=== PATIENT | female | born 1935 | race Caucasian/White ===

== ENCOUNTER 2017-11-18 16:07 | Emergency (ER) | payer MEDICARE, OTHER ==
[~2017-11-18] VITALS: Ht 152.4 cm; Wt 52.0 kg
[~2017-11-18 16:07] MED LIST: ACIP20TA19 PO; ACTO35TA PO; CALC600T34; COUM3TAB PO; LIVA2TAB PO; MAGN500T4 PO; OMEGCAP21 PO; TAB-TAB; TRAM50 PO
[2017-11-18 16:38] VITALS: BP 186/67; PULSE 70; RESP 14; TEMP 98.5; O2SAT 98
--- NOTE | 2017-11-18 18:01 | PD ---
HPI Chief Complaint: Skin Problem Time Seen by Provider: 17:47 Travel History International Travel<30 days: No Contact w/Intl Traveler<30days: No Traveled to known affect area: No History of Present Illness HPI 81-year-old female with history of Alzheimer's, Coumadin use, hyperlipidemia, presents with her daughter for evaluation. The patient's daughter noticed an area of dark discoloration of her skin on the medial proximal left arm this morning. She noticed 2 other small areas of skin discoloration on the left buttocks as well. She reports that she bruises easily but these look different than normal bruises. The areas of skin discoloration have been asymptomatic. The patient has had no complaints of pain or itching, no drainage. The patient does not recall any bug bites, puncture wounds, areas of trauma to the skin. Denies recent travel. the daughter also notes that she seem to have increased urinary frequency earlier today as well but this seems to have resolved. No other complaints at this time. PFSH Past Medical History Hx Anticoagulant Therapy: Yes Arthritis: No Heart Rhythm Problems: No Cardiovascular Problems: Yes High Cholesterol: No Chest Pain: No Congestive Heart Failure: No Diminished Hearing: No Deep Vein Thrombosis: Yes Gastrointestinal Disorders: Yes GERD: Yes Genitourinary: Yes (VOIDS FREQUENTLY) Hepatitis: No Hiatal Hernia: No Hypertension: No Immune Disorder: No Kidney Stones: No Musculoskeletal: Yes (LEFT HIP PAIN STARTED WED 05/18/07) Neurologic: No Psychiatric: No Reproductive: No Respiratory: No Myocardial Infarction: No Renal Failure: No Ulcer: No Past Surgical History Abdominal Surgery: No Appendectomy: No Cardiac Surgery: Yes (LEFT CAROTID NECK SURGERY) Cholecystectomy: No Ear Surgery: No Endocrine Surgery: No Eye Surgery: No Genitourinary Surgery: No Gynecologic Surgery: No Oral Surgery: No Thoracic Surgery: No Other Surgery: Yes (CAROTID LEFT NECK SURGERY) Social History Alcohol Use: No Tobacco Use: No Substance Use: No Allergies-Medications (Allergen,Severity, Reaction): Coded Allergies: vancomycin (Unverified Allergy, Severe, REDNESS, 02/23/17) levofloxacin (Unverified Allergy, Intermediate, ITCHING, REDNESS, 02/23/17) Sulfa (Sulfonamide Antibiotics) (Unverified Allergy, Unknown, 02/23/17) Reported Meds & Prescriptions Reported Meds & Active Scripts Active Reported Coumadin (Warfarin) 3 Mg Tab 3.5 Mg PO CANSECO,M,W,TH,SA Coumadin (Warfarin) 3 Mg Tab 3 Mg PO , WED Livalo (Pitavastatin) 4 Mg Tab 4 Mg PO DAILY Vitamin D (Cholecalciferol) 2,000 Unit Cap 1,000 Mg PO DAILY Vitamin B-12 (Cyanocobalamin (Vitamin B-12)) 1,000 Mcg Capsule 1,000 Mg PO Q3D Calcium 500 mg Chewable Tablet (Calcium Carbonate/Vitamin D3) 500 Mg-100 Tab.chew 500 Mg PO BID Review of Systems Except as stated in HPI: all other systems reviewed are Neg Physical Exam Narrative GENERAL: Pleasant well-developed well-nourished female no acute distress SKIN: Warm and dry. There is a 4 x 4 centimeters circular area of ecchymosis to the proximal left arm with some central bolt sawyer discoloration. There is a less than 5 mm circular area of ecchymosis on left buttocks as well as a small excoriated papule on left buttocks. No tenderness to palpation. No induration , erythema, fluctuance or drainage. HEAD: Atraumatic. Normocephalic. EYES: Pupils equal and round. No scleral icterus. No injection or drainage. ENT: No nasal bleeding or discharge. Mucous membranes pink and moist. NECK: Trachea midline. No JVD. CARDIOVASCULAR: Regular rate and rhythm. No murmur appreciated. RESPIRATORY: No accessory muscle use. Clear to auscultation. Breath sounds equal bilaterally. GASTROINTESTINAL: Abdomen soft, non-tender, nondistended. Hepatic and splenic margins not palpable. MUSCULOSKELETAL: No obvious deformities. No clubbing. No cyanosis. No edema. NEUROLOGICAL: Awake and alert. No obvious cranial nerve deficits. Motor grossly within normal limits. Normal speech. PSYCHIATRIC: Appropriate mood and affect; insight and judgment normal. Data Data Last Documented VS Orders Orders Complete Blood Count With Diff (11/18/17 17:57) Basic Metabolic Panel (Bmp) (11/18/17 17:57) Prothrombin Time / Inr (Pt) (11/18/17 17:57) Urinalysis - C+S If Indicated (11/18/17 17:57) B.Burgdorferi Igg&Igm Ab Lymes (11/18/17 18:02) Ed Discharge Order (11/18/17 20:09) Labs Laboratory Tests Test 11/18/17 18:22 11/18/17 18:37 White Blood Count 6.3 TH/MM3 Red Blood Count 4.68 MIL/MM3 Hemoglobin 14.5 GM/DL Hematocrit 44.8 % Mean Corpuscular Volume 95.6 FL Mean Corpuscular Hemoglobin 30.9 PG Mean Corpuscular Hemoglobin Concent 32.4 % Red Cell Distribution Width 14.2 % Platelet Count 182 TH/MM3 Mean Platelet Volume 9.8 FL Neutrophils (%) (Auto) 69.0 % Lymphocytes (%) (Auto) 19.4 % Monocytes (%) (Auto) 9.1 % Eosinophils (%) (Auto) 1.7 % Basophils (%) (Auto) 0.8 % Neutrophils # (Auto) 4.3 TH/MM3 Lymphocytes # (Auto) 1.2 TH/MM3 Monocytes # (Auto) 0.6 TH/MM3 Eosinophils # (Auto) 0.1 TH/MM3 Basophils # (Auto) 0.1 TH/MM3 CBC Comment DIFF FINAL Differential Comment Prothrombin Time 20.7 SEC Prothromb Time International Ratio 2.0 RATIO Blood Urea Nitrogen 26 MG/DL Creatinine 1.10 MG/DL Random Glucose 90 MG/DL Calcium Level 9.2 MG/DL Sodium Level 143 MEQ/L Potassium Level 3.9 MEQ/L Chloride Level 108 MEQ/L Carbon Dioxide Level 27.0 MEQ/L Anion Gap 8 MEQ/L Estimat Glomerular Filtration Rate 48 ML/MIN Lyme Disease IgG Ab (Western Blot) NEGATIVE Lyme Disease IgG Ab 18 kDa Band NON-REACTIVE Lyme Disease IgG Ab 23 kDa Band NON-REACTIVE Lyme Disease IgG Ab 28 kDa Band NON-REACTIVE Lyme Disease IgG Ab 30 kDa Band NON-REACTIVE Lyme Disease IgG Ab 39 kDa Band NON-REACTIVE Lyme Disease IgG Ab 41 kDa Band NON-REACTIVE Lyme Disease IgG Ab 45 kDa Band NON-REACTIVE Lyme Disease IgG Ab 58 kDa Band NON-REACTIVE Lyme Disease IgG Ab 66 kDa Band NON-REACTIVE Lyme Disease IgG Ab 93 kDa Band NON-REACTIVE Lyme Disease IgM Ab (Western Blot) NEGATIVE Lyme Disease IgM Ab 23 kDa Band NON-REACTIVE Lyme Disease IgM Ab 39 kDa Band NON-REACTIVE Lyme Disease IgM Ab 41 kDa Band NON-REACTIVE Urine Color YELLOW Urine Turbidity HAZY Urine pH 5.0 Urine Specific [place] 1.024 Urine Protein NEG mg/dL Urine Glucose (UA) NEG mg/dL Urine Ketones NEG mg/dL Urine Occult Blood SMALL Urine Nitrite NEG Urine Bilirubin NEG Urine Urobilinogen LESS THAN 2.0 MG/DL Urine Leukocyte Esterase NEG Urine RBC 2 /hpf Urine WBC 1 /hpf Urine Squamous Epithelial Cells 1 /hpf Urine Bacteria OCC /hpf Urine Mucus FEW /lpf Microscopic Urinalysis Comment CULT NOT INDICATED MDM Medical Decision Making Medical Screen Exam Complete: Yes Emergency Medical Condition: Yes Medical Record Reviewed: Yes Differential Diagnosis Bug bite, contusion, hematoma, erythema migrans Narrative Course The patient has a 4 cm area of circular ecchymosis with some central clearing on the left proximal forearm which is nontender nonpruritic. The patient does not recall any trauma or bug bites however she has Alzheimer's. This was just noticed by the daughter today. She is on Coumadin, she did have ecchymosis secondary to bug bite. Conceivably this could be erythema migrans. Lyme disease IgG/IgM antibody tests have been sent. We will check her platelet count , hemoglobin count, INR. She also had increased urinary frequency today. Abdomen is soft nontender. We will check BMP and urinalysis. CBC unremarkable, BMP GFR 48, INR 2, urinalysis not suggestive of an infectious process. At this point in time the plan is to discharge the patient follow-up with primary care physician as needed. Lyme IgG/IgM antibody tests are pending at the time of this dictation. Stable for discharge. Diagnosis Primary Impression: Ecchymosis Additional Instructions: Ice the affected area several times a day 15 minutes at a time. Follow-up next week with primary care physician and return for any acutely new or worsening symptoms. Med/Other Pt SpecificInfo: No Change to Meds Disposition: 01 DISCHARGE HOME Condition: Stable George Layton November 18, 2017 18:01
[2017-11-18] MEDS ORDERED: CYAN100017 PO (18:43)
[2017-11-18] MEDS ORDERED: VITA200013 PO (18:43)
[2017-11-18] MEDS ORDERED: CHEW500C2 PO (18:43)
[2017-11-18] MEDS ORDERED: LIVA4TAB PO (18:43)
[2017-11-18] MEDS ORDERED: COUM3TAB PO ×2 (18:43)
[2017-11-18 18:53] LABS: AUTOMATED NEUTROPHIL # 4.3 TH/MM3 (1.8-7.7); BASOPHIL # 0.1 TH/MM3 (0-0.2); BASOPHIL % 0.8 % (0.0-2.0); EOSINOPHIL # 0.1 TH/MM3 (0-0.4); EOSINOPHIL % 1.7 % (0.0-4.0); HEMATOCRIT 44.8 % (35.0-46.0); HEMOGLOBIN 14.5 GM/DL (11.6-15.3); LYMPH % 19.4 % (9.0-44.0); LYMPHOCYTE # 1.2 TH/MM3 (1.0-4.8); MEAN CELL VOLUME 95.6 FL (80.0-100.0); MEAN CORPUSCULAR HEMOGLOBIN 30.9 PG (27.0-34.0); MEAN CORPUSCULAR HGB CONC 32.4 % (32.0-36.0); MEAN PLATELET VOLUME 9.8 FL (7.0-11.0); MONO % 9.1 % (0.0-8.0); MONOCYTE # 0.6 TH/MM3 (0-0.9); PLATELET COUNT 182 TH/MM3 (150-450); RED BLOOD COUNT 4.68 MIL/MM3 (4.00-5.30); RED CELL DISTRIBUTION WIDTH 14.2 % (11.6-17.2); WHITE BLOOD COUNT 6.3 TH/MM3 (4.0-11.0)
[2017-11-18 19:03] LABS: PROTHROMBIN TIME - PATIENT 20.7 SEC (9.8-11.6)
[2017-11-18 19:16] LABS: CALCIUM 9.2 MG/DL (8.5-10.1); CREATININE 1.1 MG/DL (0.50-1.00)
[2017-11-18 19:38] LABS: BACTERIA, URINE OCC /hpf; BILIRUBIN, URINE NEG (NEG); BLOOD, URINE SMALL (NEG); GLUCOSE,URINE NEG (NEG); KETONE, URINE NEG (NEG); MUCUS URINE FEW /lpf (OCC); NITRITE,URINE NEG (NEG); SQUAMOUS EPITHELIAL CELL URINE 1 /hpf (0-5); URINE COLOR YELLOW (YELLW/STRAW); URINE LEUKOCYTE ESTERASE NEG (NEG)
== END 2017-11-18 20:34 | disposition home or self-care (01) ==
LOC: NEPE 16:07
DX: R23.3 Spontaneous ecchymoses (principal); G30.9 Alzheimer's disease, unspecified; F02.80 Dementia in other diseases classified elsewhere, unspecified severity, without behavioral disturbance, psychotic disturbance, mood disturbance, and anxiety; E78.5 Hyperlipidemia, unspecified; K21.9 Gastro-esophageal reflux disease without esophagitis; Z79.01 Long term (current) use of anticoagulants; Z79.899 Other long term (current) drug therapy; Z86.718 Personal history of other venous thrombosis and embolism; Z88.2 Allergy status to sulfonamides
CPT/HCPCS: 80048; 81001; 85025; 85610; 86617; 99283